=== PATIENT | male | born 1950 | race Caucasian/White ===

== ENCOUNTER → 2017-08-21 | Outpatient (CLI) | payer MEDICARE ==
--- NOTE | 2017-08-21 12:05 | ECHOS ---
STRESS ECHOCARDIOGRAM DATE OF SERVICE: August 21, 2017. INDICATION: Chest pain. BASELINE HEART RATE: 60. BASELINE BLOOD PRESSURE: 112/78. MAXIMUM HEART RATE: 134. MAXIMUM BLOOD PRESSURE: 178/83. 85% MPHR: 130. 100% MPHR: 153. METS: 11.3. MAXIMUM STAGE REACHED: IV. TOTAL EXERCISE TIME: 9:45 CLINICAL INFORMATION: STRESS DATA: Pretesting physical examination showed heart rate of 60, pressure is 112/78 mmHg. Baseline EKG showed sinus mechanism. The patient exercised on the treadmill according to Logan protocol for a total of 9 minutes and 45 seconds and achieved 11.3 METS. Max heart rate was 134, which is about 87% of maximum predicted heart rate. Maximum blood pressure was 178/83 mmHg. Clinically the patient developed chest discomfort during the exercise. The EKG showed about [address]-segment depression quite concerning for ischemia. ECHOCARDIOGRAM IMAGES: Echocardiogram images from parasternal short axis view, parasternal long axis view, apical 4 chamber and apical 2 chamber views were obtained as the baseline images, at the peak of the heart rate as well as on recovery. The echocardiogram images showed wall motion abnormalities in the anteroseptal wall concerning for ischemia. CONCLUSION: 1. Excellent exercise capacity. 2. EKG changes in response to exercise concerning for ischemia. 3. Abnormal echocardiogram with evidence of wall motion abnormalities concerning for ischemia. 4. Essentially abnormal stress echocardiogram for this gentleman. MMODL / IJN: [id number] /
== END | disposition home or self-care (01) ==
LOC: RADNMMAIN 08:47
PROVIDERS: ATTEND Family Medicine
DX: R94.31 Abnormal electrocardiogram [ECG] [EKG] (principal); R06.02 Shortness of breath; R07.9 Chest pain, unspecified
CPT/HCPCS: 93351

== ENCOUNTER 2017-09-07 06:28 | Day surgery (SDC) | payer MEDICARE ==
[~2017-09-07 06:28] MED LIST: ALPRAZolam 0.25 MG TAB PO PRN; ALPRAZolam 0.5 MG TAB PO PRN; ASPIRIN 325 MG TAB PO STA; ATORVASTATIN 80 MG TAB PO STA; NITROGLYCERIN SL TABS 0.4 MG TAB SUBLINGUAL PRN; SODIUM CHLORIDE 0.9% 1,000 ML in EMPTY BAG 1 BAG IV ONE
[2017-09-07 07:19] LABS: Basophils # (A) 0.1 k/uL (0-0.2); Basophils % (A) 1 %; Eosinophils # (A) 0.3 k/uL (0-0.7); Eosinophils % (A) 5 %; HCT 49.1 % (39.0-53.0); HGB 16.4 gm/dL (13.0-17.5); Lymphocytes # (A) 1.6 k/uL (1.0-4.8); Lymphocytes % (A) 23 %; MCH 30.1 pg (25.0-35.0); MCHC 33.5 g/dL (31.0-37.0); MCV 89.8 fL (80.0-100.0); Mean Platelet Volume 6.5; Monocytes # (A) 0.4 k/uL (0-1.0); Monocytes % (A) 6 %; Neutrophils # (A) 4.4 k/uL (1.3-7.7); Neutrophils % (A) 65 %; Platelet Count 186 k/uL (150-450); RBC 5.46 m/uL (4.30-5.90); RDW 13.7 % (11.5-15.5); WBC 6.9 k/uL (3.8-10.6)
[2017-09-07 07:26] LABS: Calcium 9.1 mg/dL (8.4-10.2); Potassium 4.6 mmol/L (3.5-5.1)
[2017-09-07] MEDS ORDERED: MIDAZOLAM 2 MG/2 ML VIAL IVP ONE (07:48)
[2017-09-07] MEDS ORDERED: LIDOCAINE 2% INJ 20 MG/ML SQ ONE (07:51)
[2017-09-07] MEDS: VERAPAMIL SYRINGE (5 MG/10 ML) INTRAARTER ONE ×3 (07:53→08:49)
[2017-09-07] MEDS ORDERED: HEPARIN SODIUM 1,000 UN/ML (10ML VL) IV ONE (07:55)
[2017-09-07] MEDS ORDERED: IOPAMIDOL-370 50ML BTL INJ ONE (08:06)
[2017-09-07] MEDS ORDERED: PRASUGREL 10 MG TAB PO ONE (08:21)
[2017-09-07] MEDS: NITROGLYCERIN 1000MCG/10ML SYRINGE INTRACORON ONE ×2 (08:24→08:31)
[2017-09-07] MEDS ORDERED: IOPAMIDOL-370 125ML BTL INJ ONE (08:37)
[2017-09-07] MEDS ORDERED: fentaNYL (PF) 50 MCG/ML 2 ML AMP IV ONE (08:42)
[2017-09-07] MEDS ORDERED: MAG HYDROX/AL HYDROX/SIMETH 30 ML CUP PO ONE (08:43)
[2017-09-07] MEDS ORDERED: IOPAMIDOL-370 100ML BTL INJ ONE (08:47)
[2017-09-07] MEDS ORDERED: ATROPINE SULFATE 0.1 MG/ML 10ML SYRINGE IV ONE (08:50)
[2017-09-07] MEDS ORDERED: MAG HYDROX/AL HYDROX/SIMETH 30 ML CUP PO PRN (08:57)
[2017-09-07] MEDS ORDERED: NITROGLYCERIN SL TABS 0.4 MG TAB SUBLINGUAL PRN (08:57)
[2017-09-07] MEDS ORDERED: ZOLPIDEM 5 MG TAB PO PRN (08:57)
[2017-09-07] MEDS ORDERED: ATROPINE SULFATE 0.1 MG/ML 10ML SYRINGE IV PRN (08:57)
[2017-09-07] MEDS ORDERED: RX INFO: IV CONTRAST WAS GIVEN 1 EACH MISC MISCELLANE PRN (08:57)
[2017-09-07] MEDS ORDERED: SODIUM CHLORIDE 0.9% 1,000 ML IV SCH (09:00)
--- NOTE | 2017-09-07 10:13 | CC ---
CARDIAC CATHETERIZATION REPORT CARDIAC CATHETERIZATION AND PERCUTANEOUS CORONARY INTERVENTION DATE OF SERVICE: 09/07/2017 PERFORMING PHYSICIAN: Jason Tapia MD, review engineer. PROCEDURE PERFORMED: 1. Selective right and left coronary angiogram. 2. Left heart catheterization. 3. Left ventriculography. 4. Successful stenting of the proximal LAD using 3.25 x 15 mm Xience MAXIMUS with good angiographic results. INDICATION: This is a pleasant 66-year-old gentleman who was experiencing chest discomfort and underwent stress echocardiogram and that came in to be abnormal. In view of that, a heart catheterization was recommended. APPROACH: Right radial artery. COMPLICATION: None. LEVEL OF SEDATION: Moderate with sedation length of 58 minutes. PROCEDURE DESCRIPTION: After obtaining an informed consent, the patient was brought to the cardiac labor relations specialist. The right radial artery was cannulated using micropuncture technique, the micropuncture wire passed easily then I placed a 6-Portuguese sheath in the right radial artery. After that I gave the patient 2 mg of verapamil IA and 10,000 units of heparin IV. After that, I did selective right and left coronary angiogram using JR4 and JL3.5 catheters. I did left heart catheterization using 6-Portuguese pigtail catheter and LV gram as well using 6-Portuguese pigtail catheter. After that I did intervene on the LAD, please see a separate paragraph for that. SELECTIVE CORONARY ANGIOGRAM: 1. The RCA is a large caliber vessel and it is a dominant vessel. The RCA is 100% occluded in the mid portion. It fills by collateral from the left coronary system. 2. The left main has mild disease only. It bifurcates into left circumflex and left anterior descending artery. 3. The left circumflex is a large caliber vessel and it is a non dominant vessel. The proximal left circumflex appeared to be angiographically normal and gives rise into medium size obtuse marginal branch which worked as ramus intermedius. The first obtuse marginal branch bifurcates into 2 subbranches. The upper subbranch has severe disease in the ostium, but the artery itself is not that large and the lower branch which is a large caliber vessel appeared to be angiographically normal. The left circumflex continues after that as a medium caliber vessel in the AV groove. 4. The LAD; the proximal LAD appeared to have a lesion in the range of 80%. It gives rise into a medium sized diagonal branch which seems to be angiographically normal. The mid and distal LAD are angiographically normal and the LAD gives rise into second diagonal branch which seems to be angiographically normal. HEMODYNAMICS: The left ventricular end-diastolic pressure was 12 mmHg and no gradient was identified across the aortic valve. LEFT VENTRICULOGRAPHY: Left ventriculography was performed in the BENDER projection using a power injection. The left ventricular systolic function is impaired with EF about 45%. The heart rate was low, which can give the impression of low EF. PCI OF THE LAD: Anticoagulation was initiated using heparin. ACT was monitored throughout the procedure. I did engage the left main using JL3.5 catheter. The LAD was wired using a whisper wire. I did predilatation using 3-0 balloon before I deployed 3.25 x 15 mm Xience MAXIMUS where the stent was positioned under fluoroscopy guidance and deployed under 12 atmospheres for 20 seconds. I post dilated the stent using 3.5 mm NC balloon, which was inflated under 16 atmospheres for 20 seconds with the following angiogram showing excellent angiographic results without perforation and without dissection with good flow in the LAD. CONCLUSION: 1. 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 2. Severe disease involving the upper branch of first obtuse marginal branch, but the artery itself is a medium caliber vessel. 3. Severe disease involving the proximal LAD. 4. Successful stenting of the LAD as described above. POSTPROCEDURE MANAGEMENT: 1. Maximize medical treatment. 2. Dual anti-platelet therapy for a year. 3. Follow up with the patient. MMODL / IJN: [id number] /
[2017-09-07 17:36] VITALS: BMI 29.7
[2017-09-07] MEDS ORDERED: ATORVASTATIN 80 MG TAB PO SCH (21:00)
[2017-09-08 07:07] LABS: Basophils # (A) 0.1 k/uL (0-0.2); Basophils % (A) 1 %; Eosinophils # (A) 0.3 k/uL (0-0.7); Eosinophils % (A) 3 %; HCT 52.7 % (39.0-53.0); HGB 17.4 gm/dL (13.0-17.5); Lymphocytes # (A) 1.4 k/uL (1.0-4.8); Lymphocytes % (A) 16 %; MCH 29.8 pg (25.0-35.0); MCHC 33.1 g/dL (31.0-37.0); MCV 89.9 fL (80.0-100.0); Mean Platelet Volume 6.3; Monocytes # (A) 0.4 k/uL (0-1.0); Monocytes % (A) 4 %; Neutrophils # (A) 6.9 k/uL (1.3-7.7); Neutrophils % (A) 75 %; Platelet Count 166 k/uL (150-450); RBC 5.86 m/uL (4.30-5.90); RDW 13.8 % (11.5-15.5); WBC 9.2 k/uL (3.8-10.6)
[2017-09-08 07:36] LABS: Calcium 9.5 mg/dL (8.4-10.2); Potassium 4.6 mmol/L (3.5-5.1)
[2017-09-08 08:49] VITALS: BP 122/75; PULSE 94; RESP 16; TEMP 97.5
[2017-09-08] MEDS ORDERED: LISINOPRIL 10 MG TAB PO SCH (09:00)
[2017-09-08] MEDS ORDERED: METOPROLOL TARTRATE 12.5 MG TAB PO SCH (09:00)
[2017-09-08] MEDS ORDERED: ASPIRIN 325 MG TAB PO SCH (09:00)
[2017-09-08] MEDS ORDERED: PRASUGREL 10 MG TAB PO SCH (09:00)
--- NOTE | 2017-09-09 06:40 | DS ---
DISCHARGE SUMMARY ADMISSION DATE: September 07, 2017 DATE OF DISCHARGE: September 08, 2017. BRIEF HISTORY: This is a very pleasant 66-year-old gentleman who was experiencing mild chest discomfort and exertional dyspnea and underwent a stress test and that revealed anterior ischemia. Yesterday he was admitted to the hospital yesterday and underwent a heart catheterization which revealed chronic total occlusion of the mid RCA and severe disease involving the LAD. The patient underwent successful stenting of the LAD with good angiographic results and without any complication. On follow up with the patient today he is doing good and he is asymptomatic. The patient is going to be discharged home in stable medical condition and I will follow up with him in the office next week. MMANGELL / IJN: [id number] /
== END 2017-09-08 11:09 | disposition home or self-care (01) ==
LOC: CATHCVL 06:28 → 6SEL 08:52 → CATHCVL 09-08 11:09
PROVIDERS: ATTEND Internal Medicine Interventional Cardiology
DX: I25.10 Atherosclerotic heart disease of native coronary artery without angina pectoris (principal); I25.82 Chronic total occlusion of coronary artery; I10 Essential (primary) hypertension; E78.5 Hyperlipidemia, unspecified; Z82.49 Family history of ischemic heart disease and other diseases of the circulatory system; Z79.82 Long term (current) use of aspirin; Z79.1 Long term (current) use of non-steroidal anti-inflammatories (NSAID); Z79.899 Other long term (current) drug therapy
CPT/HCPCS: 93458; 80048 ×2; 85025 ×2; C9600; C1769; C1887; C1725 ×2; C1874; C1894; J2001; J2250; J0461; J3010; J1644; Q9967 ×3

== ENCOUNTER 2019-10-14 10:04 | Day surgery (SDC) | payer MEDICARE ==
[2019-10-12 14:22] VITALS: BMI 31.9
[~2019-10-14 10:04] MED LIST changes: -ALPRAZolam 0.25 MG TAB PO PRN; -ALPRAZolam 0.5 MG TAB PO PRN; -ASPIRIN 325 MG TAB PO STA; -ATORVASTATIN 80 MG TAB PO STA; +LACTATED RINGERS 1,000 ML IV SCH; +LIDOCAINE 1% (10MG/ML) FOR IV START INTRADERMA PRN; -NITROGLYCERIN SL TABS 0.4 MG TAB SUBLINGUAL PRN; -SODIUM CHLORIDE 0.9% 1,000 ML in EMPTY BAG 1 BAG IV ONE
[2019-10-14 10:18] VITALS: RESP 16; TEMP 97.3
[2019-10-14] MEDS ORDERED: LIDOCAINE 1% INJ 10MG/ML (20 ML MDV) ONE (10:48)
[2019-10-14] MEDS ORDERED: PROPOFOL 10 MG/ML 20 ML VIAL IV ONE (10:48)
--- NOTE | 2019-10-14 10:55 | P.PCN ---
Date of Procedure: 10/14/19 Procedure(s) Performed: BRIEF HISTORY: Patient is a 68 he was taking [id number], pleasant, male scheduled for an upper endoscopy as a part of evaluation of long-standing history of GERD of 20 years duration. He was taking PPIs adequate a few weeks ago because of concern of side effects.. PROCEDURE PERFORMED: Esophagogastroduodenoscopy with biopsy. PREOPERATIVE DIAGNOSIS: Long-standing history of GERD. IV sedation per anesthesia. PROCEDURE: After informed consent was obtained, the patient was brought into the endoscopy unit. IV sedation was administered by Anesthesia under continuous monitoring. Initially the Olympus GIF-140 video endoscope was inserted into the mouth. Esophagus intubated without any difficulty. It was gradually advanced into the stomach and duodenum and carefully examined. The bulb and the second part of the duodenum appeared normal. The scope at this time was withdrawn to the stomach, adequately insufflated with air, and upon careful examination, mucosa of the antrum, had minimal gastritis and biopsies were done from this area. The body, cardia and the fundus appeared normal. The scope was then withdrawn into the esophagus. Small sliding-type well hernia noted. The GE junction was located at 37 cm from the incisors. The esophagus appeared normal. There were no erosions or ulcerations seen and the patient tolerated the procedure well. IMPRESSION: 1. Small hiatal hernia but no evidence of esophagitis or Garcia's esophagus. 2. Mild antral gastric. RECOMMENDATIONS: The findings of this examination were discussed with the patient as well as his family. He was advised to continue with acid suppressive therapy because of long-standing history of GERD and laryngeal pharyngeal symptoms.. He was given an option to try H2 blockers twice daily because of his concern of side effects with PPI.
[2019-10-14 11:17] VITALS: BP 107/55; PULSE 55
== END 2019-10-14 11:34 | disposition home or self-care (01) ==
LOC: ORWHC2ENDO 10:04
PROVIDERS: ATTEND Internal Medicine Gastroenterology
DX: K29.50 Unspecified chronic gastritis without bleeding (principal); K44.9 Diaphragmatic hernia without obstruction or gangrene; K21.9 Gastro-esophageal reflux disease without esophagitis; I25.10 Atherosclerotic heart disease of native coronary artery without angina pectoris; I10 Essential (primary) hypertension; E78.5 Hyperlipidemia, unspecified; M10.9 Gout, unspecified; Z79.899 Other long term (current) drug therapy; Z79.82 Long term (current) use of aspirin; Z85.21 Personal history of malignant neoplasm of larynx
CPT/HCPCS: 43239; 88305; J2001; J2704

== ENCOUNTER 2021-09-18 10:23 | Day surgery (SDC) | payer MEDICARE ==
[2021-09-18 10:55] VITALS: TEMP 97.1
[2021-09-18] MEDS ORDERED: PROPOFOL 10 MG/ML 20 ML VIAL IV ONE (12:04)
--- NOTE | 2021-09-18 12:18 | P.PCN ---
Date of Procedure: 09/18/21 Procedure(s) Performed: BRIEF HISTORY: Patient is a 70-year-old pleasant male scheduled for an elective colonoscopy as a part of evaluation of prior history of colon polyps. PROCEDURE PERFORMED: Colonoscopy snare polypectomy. PREOPERATIVE DIAGNOSIS: History of colon polyps. IV sedation per Anesthesia. PROCEDURE: After informed consent was obtained, the patient, was brought into the endoscopy unit. IV sedation was administered by Anesthesia under continuous monitoring. Digital rectal examination was normal. Initially the Olympus CF-160 flexible video colonoscope was then inserted in the rectum, gradually advanced into the cecum without any difficulty. Careful examination was performed as the scope was gradually being withdrawn. Ileocecal valve and the appendiceal orifice were visualized and appeared normal. Prep was excellent. Mucosa of the cecum, appeared normal. In the ascending colon there was a minute a polyp removed by snare polypectomy. Rest of the ascending colon, transverse colon, descending colon, sigmoid colon, and rectum appeared normal. In the rectum there was a 3 mm and 5 limited polyp removed by snare polypectomy. Retroflexion was performed in the rectum and no lesions were seen. The patient tolerated the procedure well. IMPRESSION: 6 mm ascending colon polyp status post polypectomy 3 mm and 5 mm rectal polyp status post snare polypectomy Scattered sigmoid diverticulosis RECOMMENDATIONS: Findings of this examination were discussed with the patient as well as his family. He was advised to follow with the biopsy results. If the biopsy reveals adenoma he can have a repeat colonoscopy in 5 years
[2021-09-18 12:49] VITALS: BP 112/67; PULSE 51; RESP 20
== END 2021-09-18 13:11 | disposition home or self-care (01) ==
LOC: ORWHC2ENDO 10:23
PROVIDERS: ATTEND Internal Medicine Gastroenterology
DX: Z12.11 Encounter for screening for malignant neoplasm of colon (principal); Z86.010 Personal history of colon polyps; D12.2 Benign neoplasm of ascending colon; D12.8 Benign neoplasm of rectum; K57.30 Diverticulosis of large intestine without perforation or abscess without bleeding; Z79.899 Other long term (current) drug therapy; I25.10 Atherosclerotic heart disease of native coronary artery without angina pectoris; I10 Essential (primary) hypertension; E78.5 Hyperlipidemia, unspecified; K21.9 Gastro-esophageal reflux disease without esophagitis; M10.9 Gout, unspecified; Z79.82 Long term (current) use of aspirin; Z79.890 Hormone replacement therapy; Z95.5 Presence of coronary angioplasty implant and graft
CPT/HCPCS: 88305; 45385; J2704